=== PATIENT | female | born 1945 | race Caucasian/White ===

== ENCOUNTER 2024-06-30 14:18 | Emergency (ER) | payer MEDICARE, MEDICAID ==
[2024-06-30 15:06] LABS: BASOPHILS PERCENT AUTO 0.2 % (0.0-1.0); EOSINOPHILS ABSOLUTE AUTO 0.1 K/mm3 (0.0-0.4); EOSINOPHILS PERCENT AUTO 0.9 % (0.0-6.0); HEMATOCRIT 46.1 % (37.0-47.0); HEMOGLOBIN 15.5 gm/dl (12.0-16.0); IMMATURE GRAN ABSOLUTE AUTO 0.02 K/mm3 (0.00-0.05); IMMATURE GRAN PERCENT AUTO 0.2 % (0.0-0.4); LYMPHOCYTES ABSOLUTE AUTO 0.9 K/mm3 (1.0-4.8); LYMPHOCYTES PERCENT AUTO 10.9 % (24.0-44.0); MEAN CORPUSCULAR HEMOGLOBIN 28.2 pg (28.0-32.0); MEAN CORPUSCULAR HGB CONC 33.6 g/dl (32.0-36.0); MEAN CORPUSCULAR VOLUME 83.8 fl (83.0-99.0); MEAN PLATELET VOLUME 8.5 fl (9.4-12.3); MONOCYTES ABSOLUTE AUTO 0.5 K/mm3 (0.0-0.8); MONOCYTES PERCENT AUTO 5.2 % (0.0-8.0); NEUTROPHILS ABSOLUTE AUTO 7.1 K/mm3 (1.8-7.7); NEUTROPHILS PERCENT AUTO 82.6 % (41.0-71.0); PLATELET COUNT,PLT 302 K/mm3 (150-400); WHITE BLOOD CELL COUNT,WBC 8.62 K/mm3 (3.9-11.3)
[2024-06-30 15:24] LABS: A/G RATIO 1.4 (1-2); ALBUMIN 4.5 g/dl (3.4-5.0); ANION GAP 17.4 (5-15); BILIRUBIN TOTAL 0.5 mg/dL (0.2-1.0); CALCIUM 9.9 mg/dL (8.5-10.1); EST CRCL DRUG DOSING (CG) 40.68 mL/min; PROTEIN TOTAL,TP 7.8 g/dl (6.4-8.2)
[2024-06-30 15:28] LABS: POTASSIUM,K 4.4 mEq/L (3.5-5.1)
[2024-06-30] MEDS: Labetalol 100 MG/20 ML MDV IVPUSH ONE (15:32)
[2024-06-30] MEDS: LORazepam 2 MG/ML SDV IVPUSH ONE (16:06)
== END 2024-06-30 18:01 | disposition home or self-care (01) ==
LOC: JD.ED 14:18
DX: I16.1 Hypertensive emergency (principal); E87.1 Hypo-osmolality and hyponatremia; Z88.5 Allergy status to narcotic agent
CPT/HCPCS: 36415; 70450; 80053; 84484; 85025; 96374; 99284; J1921